=== PATIENT | male | born 1975 | race Caucasian/White ===

== ENCOUNTER 2023-01-20 09:49 | Emergency (ER) | payer SELFPAY ==
[~2023-01-20] VITALS: Ht 170.2 cm; Wt 97.5 kg
== END 2023-01-20 10:57 | disposition home or self-care (01) ==
LOC: ER 09:59
DX: T16.2XXA Foreign body in left ear, initial encounter (principal); F17.210 Nicotine dependence, cigarettes, uncomplicated
CPT/HCPCS: 99283